=== PATIENT | female | born 1985 | race Caucasian/White ===

== ENCOUNTER 2018-01-21 15:00 | Inpatient (IN) | payer OTHER ==
[~2018-01-21] VITALS: Ht 165.1 cm; Wt 81.6 kg
[2018-01-22] MEDS ORDERED: PRENATAL PLUS1 EAC1 (09:21)
== END 2018-01-25 15:17 | disposition home or self-care (01) | DRG 766 ==
LOC: O/R 01-22 08:48 → OB/GYN 01-22 13:00 → SURG-SUITE 01-22 15:40
PROVIDERS: Obstetrics & Gynecology
PROC: 4A1HXCZ Monitoring of Products of Conception, Cardiac Rate, External Approach (ICD-10-PCS; 2018-01-22)
PROC: 10D00Z1 Extraction of Products of Conception, Low, Open Approach (ICD-10-PCS; principal; 2018-01-22 13:00)
DX: O99.824 Streptococcus B carrier state complicating childbirth (principal); Z3A.39 39 weeks gestation of pregnancy; Z37.0 Single live birth

== ENCOUNTER 2020-01-28 07:45 | Inpatient (IN) | payer OTHER ==
[~2020-01-28] VITALS: Ht 160 cm; Wt 3.2 kg
[~2020-01-28 07:45] MED LIST: PRENATAL PLUS1 EAC1
[2020-02-03] MEDS ORDERED: PRENATAL TABLE1 EAC1 PO (11:45)
== END 2020-02-06 14:26 | DRG 785 ==
LOC: OB/GYN 02-03 07:45 → O/R 02-03 10:59 → SURG-SUITE 02-03 10:59
PROVIDERS: ADMIT Obstetrics & Gynecology; ATTEND Obstetrics & Gynecology
PROC: 0UB70ZZ Excision of Bilateral Fallopian Tubes, Open Approach (ICD-10-PCS; 2020-02-03)
PROC: 4A1HXCZ Monitoring of Products of Conception, Cardiac Rate, External Approach (ICD-10-PCS; 2020-02-03)
PROC: 10D00Z1 Extraction of Products of Conception, Low, Open Approach (ICD-10-PCS; principal; 2020-02-03 12:00)
DX: O82 Encounter for cesarean delivery without indication (principal); O34.211 Maternal care for low transverse scar from previous cesarean delivery; Z3A.39 39 weeks gestation of pregnancy; Z37.0 Single live birth; Z30.2 Encounter for sterilization